=== PATIENT | female | born 1995 | race Caucasian/White ===

== ENCOUNTER 2019-01-22 22:08 | Outpatient (CLI) | payer BC ==
[2019-01-22 23:43] LABS: ADD UMIC YES; UR AMORPHOUS CRYSTAL FEW /HPF (NONE SEEN); UR ASCORBIC ACID NEGATIVE (NEGATIVE); UR BILIRUBIN (Dip) NEGATIVE (NEGATIVE); UR BLOOD (Dip) NEGATIVE (NEGATIVE); UR CLARITY SLIGHTLY CLOUDY (CLEAR); UR COLOR YELLOW (YELLOW); UR GLUCOSE (Dip) NEGATIVE (NEGATIVE); UR KETONES (Dip) NEGATIVE (NEGATIVE); UR LEUKOCYTE ESTERASE (Dip) TRACE Leu/ul (NEGATIVE); UR MUCUS FEW /HPF (NONE SEEN); UR NITRITE (Dip) NEGATIVE (NEGATIVE); UR RBC 0 /HPF (0-5); UR SPECIFIC GRAVITY (Dip) 1.011 (1.003-1.030); UR SQUAMOUS EPITHELIAL CELL MANY /HPF (FEW); UR TOTAL PROTEIN (Dip) NEGATIVE (NEGATIVE); UR UROBILINOGEN (Dip) NEGATIVE (NEGATIVE); UR WBC 2 /HPF (0-5)
[2019-01-23] MEDS ORDERED: LACTATED RINGER'S 1,000 ML IV ×2 (01:00→02:00)
[2019-01-23] MEDS: TERBUTALINE 1 MG/ML INJ SC (01:27)
== END 2019-01-23 02:36 | disposition home or self-care (01) ==
LOC: OBT 22:08 → L-D 22:09
DX: O47.03 False labor before 37 completed weeks of gestation, third trimester (principal); Z3A.32 32 weeks gestation of pregnancy; O26.853 Spotting complicating pregnancy, third trimester; R82.90 Unspecified abnormal findings in urine
CPT/HCPCS: 36415; 76815; 76817; 76818; 81001; 87086

== ENCOUNTER 2019-03-05 16:45 | Inpatient (IN) | payer BC ==
[2019-03-05 17:30] LABS: ADD MAN DIFF? NO
[2019-03-05 17:36] LABS: WHITE BLOOD COUNT 8.5 10^3/ul (4.8-10.8)
[2019-03-05 17:36] LABS: BASOPHILS % 0.4 % (0.0-2.0); EOSINOPHILS % 0.2 % (0.0-7.0); HEMATOCRIT 31.4 % (37.0-47.0); HEMOGLOBIN 10.7 g/dl (12.0-16.0); LYMPHOCYTES # 1.3 10^3/ul (0.8-2.9); LYMPHOCYTES % 15.7 % (15.0-51.0); MEAN CORPUSCULAR HEMOGLOBIN 29.8 pg (29.0-33.0); MEAN CORPUSCULAR HGB CONC 34.1 g/dl (32.0-37.0); MEAN CORPUSCULAR VOLUME 87.5 fl (82.0-101.0); MEAN PLATELET VOLUME 10.4 fl (7.4-10.4); MONOCYTE # 0.6 10^3/ul (0.3-0.9); MONOCYTES % 7.3 % (0.0-11.0); NEUTROPHIL # 6.4 10^3/ul (1.6-7.5); NEUTROPHILS % 75.1 % (39.0-77.0); PLATELET COUNT 216 10^3/UL (140-415); RED BLOOD COUNT 3.59 10^6/ul (4.20-5.40); RED CELL DISTRIBUTION WIDTH 13.6 % (11.5-14.5)
[2019-03-05 17:49] LABS: ALANINE AMINOTRANSFERASE 20 IU/L (13-69); ALBUMIN 3.6 g/dl (3.3-4.9); ALBUMIN/GLOBULIN RATIO 1.12; ALKALINE PHOSPHATASE 165 IU/L (42-121); ANION GAP 9 (5-13); ASPARTATE AMINO TRANSFERASE 22 IU/L (15-46); BILIRUBIN,INDIRECT 0.6 mg/dl (0-1.1); BILIRUBIN,TOTAL 0.6 mg/dl (0.2-1.3); BLOOD UREA NITROGEN 10 mg/dl (7-20); CALCIUM 8.7 mg/dl (8.4-10.2); CARBON DIOXIDE 22 mmol/L (21-31); CHLORIDE 107 mmol/L (97-110); CREATININE 0.52 mg/dl (0.44-1.00); Estimated GFR > 60 mL/min (>60); GLUCOSE 89 mg/dl (70-220); POTASSIUM 3.8 mmol/L (3.5-5.1); SODIUM 138 mmol/L (135-144); TOTAL PROTEIN 6.8 g/dl (6.1-8.1); URIC ACID 3.6 mg/dl (3.1-7.9)
[2019-03-05 17:51] LABS: ADD UMIC NO; UR ASCORBIC ACID NEGATIVE (NEGATIVE); UR BACTERIA FEW /HPF (NONE SEEN); UR BILIRUBIN (Dip) NEGATIVE (NEGATIVE); UR BLOOD (Dip) NEGATIVE (NEGATIVE); UR CLARITY SLIGHTLY CLOUDY (CLEAR); UR COLOR STRAW (YELLOW); UR GLUCOSE (Dip) NEGATIVE (NEGATIVE); UR KETONES (Dip) NEGATIVE (NEGATIVE); UR LEUKOCYTE ESTERASE (Dip) NEGATIVE Leu/ul (NEGATIVE); UR NITRITE (Dip) NEGATIVE (NEGATIVE); UR RBC 0 /HPF (0-5); UR SPECIFIC GRAVITY (Dip) 1.004 (1.003-1.030); UR SQUAMOUS EPITHELIAL CELL FEW /HPF (FEW); UR TOTAL PROTEIN (Dip) NEGATIVE (NEGATIVE); UR UROBILINOGEN (Dip) NEGATIVE (NEGATIVE); UR WBC 1 /HPF (0-5)
[2019-03-05] MEDS ORDERED: IBUPROFEN 600 MG TAB PO (23:00)
[2019-03-05] MEDS ORDERED: MISOPROSTOL 200 MCG TAB PR (23:00)
[2019-03-05] MEDS ORDERED: OXYTOCIN 30 UNITS/LR 500 ML IV (23:00)
[2019-03-05] MEDS ORDERED: CARBOPROST 250 MCG INJ IM (23:00)
[2019-03-05] MEDS ORDERED: METHYLERGONOVINE 0.2 MG INJ IM (23:00)
[2019-03-05] MEDS ORDERED: LIDOCAINE 1% (MPF) 30 ML INJ INJ (23:00)
[2019-03-06 00:03] LABS: INR 0.85; PROTIME 11.7 Sec (11.9-14.9); PT RATIO 0.9
[2019-03-06 00:04] LABS: PARTIAL THROMBOPLASTIN TIME 28.2 Sec (23.0-35.0)
[2019-03-06] MEDS: LACTATED RINGER'S 1,000 ML IV ×5 (00:30→21:50)
[2019-03-06] MEDS: OXYTOCIN 30 UNITS/LR 500 ML IV (00:32)
[2019-03-06 00:41] LABS: HEPATITIS B SURFACE ANTIGEN NEGATIVE (NEGATIVE)
[2019-03-06] MEDS ORDERED: NALOXONE (0.4 MG/ML) INJ IV (11:30)
[2019-03-06] MEDS ORDERED: HYDROmorphONE 0.5 MG/0.5 ML SYG IV ×2 (11:30)
[2019-03-06] MEDS ORDERED: FENTAnyl 2MCG/ML-ROPIV 0.2% 100 ML BAG EPI (11:30)
[2019-03-06] MEDS ORDERED: DIPHENHYDRAMINE 50 MG INJ IV (11:30)
[2019-03-06] MEDS ORDERED: KETOROLAC 30 MG INJ IV (11:30)
[2019-03-06] MEDS ORDERED: ONDANSETRON 4 MG INJ IV (11:30)
[2019-03-06] MEDS: BUTORPHANOL 2 MG INJ IV ×3 (14:07→23:54)
[2019-03-06 15:37] LABS: RAPID PLASMA REAGIN NONREACTIVE (NR)
[2019-03-07] MEDS ORDERED: MINERAL OIL LIGHT 10 ML VIAL TOP (03:00)
[2019-03-07] MEDS ORDERED: AMPICILLIN 2 GM/NS (PMX) 100 ML (09:28)
[2019-03-07] MEDS ORDERED: CEFAZOLIN 2 GM/50 ML (PMX) 50 ML IVPB (09:30)
[2019-03-07] MEDS: AMPICILLIN 2 GM/NS (PMX) 100 ML IVPB (09:41)
[2019-03-07] MEDS: KETOROLAC 30 MG INJ IV (11:07)
[2019-03-07] MEDS: OXYTOCIN 30 UNITS/LR 500 ML IV ×2 (11:10→11:51)
[2019-03-07] MEDS: ACETAMINOPHEN 500 MG TAB PO (11:15)
[2019-03-07] MEDS: AZITHROMYCIN 500MG/NS (PMX) 250 ML IVPB (11:21)
[2019-03-07] MEDS ORDERED: CARBOPROST 250 MCG INJ IM (14:30)
[2019-03-07] MEDS ORDERED: ZOLPIDEM 5 MG TAB PO (14:30)
[2019-03-07] MEDS ORDERED: DIBUCAINE 1% 30 GM OINT TOP (14:30)
[2019-03-07] MEDS ORDERED: OXYTOCIN 30 UNITS/LR 500 ML IV (14:30)
[2019-03-07] MEDS ORDERED: HYDROCODONE/APAP (5/325) TAB PO ×2 (14:30)
[2019-03-07] MEDS ORDERED: MISOPROSTOL 200 MCG TAB PR (14:30)
[2019-03-07] MEDS ORDERED: METHYLERGONOVINE 0.2 MG INJ IM (14:30)
[2019-03-07] MEDS: BENZOCAINE 20% 56 ML SPRAY TOP (16:15)
[2019-03-07] MEDS: LANOLIN HPA 1 PKT TOP (16:15)
[2019-03-07] MEDS: WITCH HAZEL/GLYCERIN PAD PR (16:15)
[2019-03-07] MEDS: LACTATED RINGER'S 1,000 ML IV* ×2 (16:16→22:28)
[2019-03-07] MEDS: CEPHALEXIN 500 MG CAP PO ×2 (18:13→23:45)
[2019-03-07] MEDS: IBUPROFEN 600 MG TAB PO ×2 (18:13→23:46)
[2019-03-07] MEDS: SENNA/DOCUSATE NA (8.6MG/50MG) TAB PO (21:21)
[2019-03-07] MEDS: MAGNESIUM HYDROXIDE 30ML CUP PO (21:21)
[2019-03-08] MEDS: IBUPROFEN 600 MG TAB PO ×3 (05:44→17:35)
[2019-03-08] MEDS: CEPHALEXIN 500 MG CAP PO ×3 (05:44→17:35)
[2019-03-08] MEDS: LACTATED RINGER'S 1,000 ML IV* ×2 (06:28→14:28)
[2019-03-08 07:00] LABS: WHITE BLOOD COUNT 18.3 10^3/ul (4.8-10.8)
[2019-03-08 07:00] LABS: HEMATOCRIT 23.5 % (37.0-47.0); HEMOGLOBIN 7.9 g/dl (12.0-16.0); MEAN CORPUSCULAR HEMOGLOBIN 29.5 pg (29.0-33.0); MEAN CORPUSCULAR HGB CONC 33.6 g/dl (32.0-37.0); MEAN CORPUSCULAR VOLUME 87.7 fl (82.0-101.0); MEAN PLATELET VOLUME 10.8 fl (7.4-10.4); NUCLEATED RED BLOOD CELLS% 0.1 /100WBC (0.0-0.0); PLATELET COUNT 186 10^3/UL (140-415); RED BLOOD COUNT 2.68 10^6/ul (4.20-5.40); RED CELL DISTRIBUTION WIDTH 14.3 % (11.5-14.5)
[2019-03-08 07:03] LABS: POSITIVE DIFF @See below
[2019-03-08 07:04] LABS: ADD MAN DIFF? YES
[2019-03-08] MEDS: MAGNESIUM HYDROXIDE 30ML CUP PO ×2 (09:19→21:28)
[2019-03-08] MEDS: SENNA/DOCUSATE NA (8.6MG/50MG) TAB PO ×2 (09:19→21:28)
[2019-03-08 10:30] LABS: ANISOCYTOSIS 1+ (0-0); BAND NEUTROPHILS #M 3.2 10^3/ul (0.0-0.6); BAND NEUTROPHILS % (M) 18 % (0-4); LYMPHOCYTES #M 1.6 10^3/ul (0.8-2.9); LYMPHOCYTES % (M) 9 % (15-51); MICROCYTOSIS 1+ (0-0); MONOCYTES % (M) 6 % (0-11); PLATELET ESTIMATE NORMAL; REACTIVE LYMPHOCYTES #M 0.5 10^3/ul (0.0-0.0); REACTIVE LYMPHOCYTES% (M) 3 % (0-0); SEG NEUT #M 12.3 10^3/ul (1.6-7.5); SEGMENTED NEUTROPHILS (M) % 64 % (39-77); SMUDGE%M 11 % (0-0)
[2019-03-09] MEDS: IBUPROFEN 600 MG TAB PO ×3 (00:06→12:45)
[2019-03-09] MEDS: CEPHALEXIN 500 MG CAP PO (00:06)
[2019-03-09] MEDS: CEPHALEXIN 250 MG CAP PO ×2 (07:01→12:45)
[2019-03-09] MEDS: DIPHTH/TET/ACEL PERTUSS (ADULT) 0.5 ML VIAL IM* (08:53)
[2019-03-09] MEDS: MEASLES,MUMPS,RUBELLA VACCINE INJ SC* (08:53)
[2019-03-09] MEDS: SENNA/DOCUSATE NA (8.6MG/50MG) TAB PO (08:53)
[2019-03-09] MEDS: MAGNESIUM HYDROXIDE 30ML CUP PO (08:53)
[2019-03-09] MEDS: VARICELLA VACCINE LIVE/PF 1,350 UNIT/0.5 ML ML SC* (08:54)
== END 2019-03-09 15:20 | disposition home or self-care (01) | DRG 807 ==
LOC: OBT 16:45 → L-D 03-06 09:22 → PP1 03-07 13:50 → L-D 16:46 → OBT 22:00 → L-D 22:00
PROVIDERS: Obstetrics & Gynecology
PROC: 10D07Z6 Extraction of Products of Conception, Vacuum, Via Natural or Artificial Opening (ICD-10-PCS; principal; 2019-03-07)
PROC: 0W8NXZZ Division of Female Perineum, External Approach (ICD-10-PCS; 2019-03-07)
DX: O75.81 Maternal exhaustion complicating labor and delivery (principal); O63.1 Prolonged second stage (of labor); Z37.0 Single live birth; Z3A.40 40 weeks gestation of pregnancy
CPT/HCPCS: 62322; 72131; 76815; 76818; 80053; 81001; 81003; 84560; 85025; 85610; 85730; 86592; 86850; 86900; 86901; 87070; 87340; 90716; 99464